=== PATIENT | male | born 1975 ===

== ENCOUNTER 2024-07-08 02:08 | Day surgery (SDC) | payer BC, SELFPAY ==
[2024-06-26 15:58] VITALS: BMI 42.9
[2024-07-08 10:10] VITALS: BP 151/98; PULSE 105; RESP 18; TEMP 36; O2SAT 99; BMI 49.0
[2024-07-08] MEDS: LACTATED RINGERS 1,000 ML 150 ML IV CONT (10:14)
--- NOTE | 2024-07-08 10:46 | WPDANESEPPF ---
Anes - Initial Pre Proc Eval Procedure: Operation Date: 07/08/24 11:30 Proposed Procedures p Screening Colonoscopy - Bernardino Mayorga MD Date/Time: 07/08/24 10:46 Surgeon: Bernardino Mayorga MD Pre Op Diagnosis: Neoplasm screening Patient Data Age: 48 Gender: M Height: 1.75 m Weight: 150.7 kg Last Vital Signs Temp 36.0 C L 07/08/24 10:10 Pulse 105 H 07/08/24 10:10 Resp 18 07/08/24 10:10 BP 151/98 H 07/08/24 10:10 Pulse Ox 99 07/08/24 10:10 O2 Del Method Room Air 07/08/24 10:10 Allergies Allergy/AdvReac Type Severity Reaction Status Date / Time No Known Allergies Verified 07/08/24 10:09 Home Medications Medication Instructions Recorded Confirmed Type vit C 250 mg-vit E 90 mg-zinc 40 2 tablet PO BID 08/05/19 07/08/24 History mg-copper 1 [id number] capsule (PreserVision AREDS-2) esomeprazole magnesium 20 mg 20 mg PO DAILY 12/27/22 07/08/24 History tablet,delayed release (Nexium 24HR) amlodipine 2.5 mg tablet 2.5 mg PO DAILY #90 tabs 01/17/24 07/08/24 Rx cholecalciferol (vitamin D3) 1,250 50,000 unit PO WEEKLY #12 tabs 01/17/24 07/08/24 Rx mcg (50,000 unit) tablet (Dialyvite Vitamin D3 Max) cyanocobalamin (vitamin B-12) 1,000 mcg IM MONTHLY #25 mL 01/17/24 07/08/24 Rx 1,000 mcg/mL injection solution furosemide 20 mg tablet 20 mg PO QAM #90 tabs 01/17/24 07/08/24 Rx levothyroxine 150 mcg tablet 150 mcg PO . q.a.m. #90 tabs 01/17/24 07/08/24 Rx lisinopril 40 mg tablet 40 mg PO DAILY #90 tabs 01/17/24 07/08/24 Rx metoprolol succinate 200 mg 200 mg PO DAILY #90 tabs 01/17/24 07/08/24 Rx tablet,extended release 24 hr syringe with needle, safety 1 mL #25 ea 01/17/24 07/08/24 Rx 23 gauge x 1 Patient hx anesthesia problems: none Family hx anesthesia problems: none Results Review: All pre-operative results and documents have been reviewed as part of the pre-operative evaluation. [facility] Past Medical History Medical History Acute bilateral low back pain without sciatica Chewing tobacco nicotine dependence 2 cans per week Chronic low back pain with left-sided sciatica Congestive heart failure, unspecified Encounter for prostate cancer screening PSA 0.89 on 06/22/2023. 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 Mixed hyperlipidemia total cholesterol 195, triglycerides 211, HDL 61, LDL 101 with ratio 3.2 on 06/22/2023. Morbid obesity with BMI of 45.0-49.9, adult Morbid obesity with BMI of 50.0-59.9, adult Family History Family History Father Acute myocardial infarction, Onset Age: 50 Grandparent Acute myocardial infarction, Onset Age: 80 Family history of chronic obstructive pulmonary disease, Onset Age: 70 Social History Social History Smoking status: Never smoker ( chews tobacco 2 or 3 cans per week) Tobacco type: smokeless tobacco Smokeless tobacco user: chewing tobacco Alcohol intake: current Alcohol use details: weekends Substance use: never Substance use type: does not use Lack of Transportation: No Lack of Food: Never True Current Housing: I Have Housing Concerned About Future Housing: No Difficulty Paying Gas/Electric Bills: No Difficulty Paying for Meds: No Currently Unemployed: No Education: High School Diploma/GED Difficulty w/ Childcare or Family Care: No Living arrangements: with family Spiritual care concerns: No Anes - Eval Final PreProcedure Day of Procedure 07/08/24 10:46 Patient weight: morbidly obese Heart: regular rate and rhythm Lungs: clear to auscultation Airway: Mallampati scale class II Neurological: alert and oriented Last oral intake: >/= 8 hours ASA classification: IV Emergent: no Anesthetic plan: proceed Anesthesia type and monitoring: general GIVS and standard monitoring Results Review: All pre-operative results and documents have been reviewed as part of the pre-operative evaluation. Informed Consent: The patient's anesthetic plan and its attendant risks and benefits were discussed with the patient/family/POA. Questions were solicited and answers provided to the satisfaction of the patient/family/POA.
--- NOTE | 2024-07-08 10:49 | PM.HPGS ---
History of Present Illness History of Present Illness Consent: Risks, benefits, and alternatives have been discussed and questions answered. Patient agrees to proceed with procedure. Chief complaint: Neoplasm screening Narrative: Pawan Maciel is a 48 year old male here for first screening colonoscopy Review of Systems Review of Systems: All systems reviewed & are unremarkable except as noted in HPI and below PMFSH Past Medical History Medical History (Updated 07/08/24 @ 10:51 by Bernardino Mayorga MD) Acute bilateral low back pain without sciatica Chewing tobacco nicotine dependence 2 cans per week Chronic low back pain with left-sided sciatica Colon cancer screening Congestive heart failure, unspecified Encounter for prostate cancer screening PSA 0.89 on 06/22/2023. 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 Mixed hyperlipidemia total cholesterol 195, triglycerides 211, HDL 61, LDL 101 with ratio 3.2 on 06/22/2023. Morbid obesity with BMI of 45.0-49.9, adult Morbid obesity with BMI of 50.0-59.9, adult Family History Family History Father Acute myocardial infarction, Onset Age: 50 Grandparent Acute myocardial infarction, Onset Age: 80 Family history of chronic obstructive pulmonary disease, Onset Age: 70 Social History Social History Smoking status: Never smoker ( chews tobacco 2 or 3 cans per week) Tobacco type: smokeless tobacco Smokeless tobacco user: chewing tobacco Alcohol intake: current Alcohol use details: weekends Substance use: never Substance use type: does not use Lack of Transportation: No Lack of Food: Never True Current Housing: I Have Housing Concerned About Future Housing: No Difficulty Paying Gas/Electric Bills: No Difficulty Paying for Meds: No Currently Unemployed: No Education: High School Diploma/GED Difficulty w/ Childcare or Family Care: No Living arrangements: with family Spiritual care concerns: No Meds Home Medications and Allergies Home Medications Medication Instructions Recorded Confirmed Type vit C 250 mg-vit E 90 mg-zinc 40 2 tablet PO BID 08/05/19 07/08/24 History mg-copper 1 [id number]-[id number] capsule (PreserVision AREDS-2) esomeprazole magnesium 20 mg 20 mg PO DAILY 12/27/22 07/08/24 History tablet,delayed release (Nexium 24HR) amlodipine 2.5 mg tablet 2.5 mg PO DAILY #90 tabs 01/17/24 07/08/24 Rx cholecalciferol (vitamin D3) 1,250 50,000 unit PO WEEKLY #12 tabs 01/17/24 07/08/24 Rx mcg (50,000 unit) tablet (Dialyvite Vitamin D3 Max) cyanocobalamin (vitamin B-12) 1,000 mcg IM MONTHLY #25 mL 01/17/24 07/08/24 Rx 1,000 mcg/mL injection solution furosemide 20 mg tablet 20 mg PO QAM #90 tabs 01/17/24 07/08/24 Rx levothyroxine 150 mcg tablet 150 mcg PO . q.a.m. #90 tabs 01/17/24 07/08/24 Rx lisinopril 40 mg tablet 40 mg PO DAILY #90 tabs 01/17/24 07/08/24 Rx metoprolol succinate 200 mg 200 mg PO DAILY #90 tabs 01/17/24 07/08/24 Rx tablet,extended release 24 hr syringe with needle, safety 1 mL #25 ea 01/17/24 07/08/24 Rx 23 gauge x 1 Allergies Allergy/AdvReac Type Severity Reaction Status Date / Time No Known Allergies Verified 07/08/24 10:09 Vital Signs Vital Signs - 24 hr 07/08/24 10:10 Temperature 96.8 F L Pulse Rate 105 H Respiratory Rate 18 Blood Pressure 151/98 H Pulse Oximetry 99 Oxygen Delivery Room Air Exam Const: General: comfortable and no acute distress HENMT: Face/Nose/Sinus: Normal nares present Eyes: General: appearance normal, both eyes and all related structures Neck: Neck: no JVD Resp: Auscultation: clear to auscultation bilaterally Cardio: Rate: regular rate Rhythm: regular rhythm GI: Inspection: non-distended GI Palp: Yes Soft to palpation Skin: General skin exam: normal color Neuro: General: gait normal Speech: normal speech Extrem: General: normal to inspection Psych: Mental Status: mental status grossly normal Assessment and Plan Assessment and plan (1) Colon cancer screening: Code(s): Z12.11 - Encounter for screening for malignant neoplasm of colon Status: Acute Assessment and Plan: colonoscopy
[2024-07-08 11:15] VITALS: BP 142/88; PULSE 96; RESP 19; O2SAT 99
[2024-07-08 11:25] VITALS: BP 134/85; PULSE 93; RESP 23; O2SAT 100
[2024-07-08 11:35] VITALS: BP 151/90; PULSE 101; RESP 26; O2SAT 99
== END 2024-07-08 11:41 | disposition home or self-care (01) ==
PROVIDERS: PCP Family Medicine; Visit Provider Internal Medicine Gastroenterology
PROC: 0DJD8ZZ Inspection of Lower Intestinal Tract, Via Natural or Artificial Opening Endoscopic (ICD-10-PCS; CPT 45378; principal; 2024-07-08 11:30)
DX: Z12.11 Encounter for screening for malignant neoplasm of colon (principal); E78.2 Mixed hyperlipidemia; N52.9 Male erectile dysfunction, unspecified; G89.29 Other chronic pain; M54.42 Lumbago with sciatica, left side; I50.9 Heart failure, unspecified; F17.220 Nicotine dependence, chewing tobacco, uncomplicated; E66.01 Morbid (severe) obesity due to excess calories; Z68.42 Body mass index [BMI] 45.0-49.9, adult; Z82.49 Family history of ischemic heart disease and other diseases of the circulatory system
CPT/HCPCS: 45378; J2704; J7120